=== PATIENT | female | born 1995 | race Caucasian/White ===

== ENCOUNTER 2016-11-26 02:05 | Inpatient (IN) | payer MEDICAID, OTHER ==
[2016-11-26] VITALS (50 sets, daily range): BP systolic 96–150; BP diastolic 47–117; PULSE 61–103; RESP 9–20; TEMP 97.7–98.3; O2SAT 96–100
[~2016-11-26] VITALS: Ht 160 cm; Wt 80.7 kg
[~2016-11-26 02:05] MED LIST: RANI150T PO
[2016-11-26] MEDS ORDERED: LACTATED RINGER'S 1000 ML INJ 1,000 ML IV SCH (02:54)
[2016-11-26] MEDS ORDERED: ONDANSETRON HCL 4 MG/2 ML VIAL IV PRN (03:00)
[2016-11-26] MEDS ORDERED: CITRIC ACID-SODIUM CITRATE LIQ 30 ML UDC PO SCH (03:00)
[2016-11-26] MEDS ORDERED: OXYTOCIN 30 UNITS-500ML PREMIX 500 ML IV ONE (03:00)
[2016-11-26] MEDS ORDERED: LIDOCAINE HCL 1% 50 ML VIAL INFIL PRN (03:00)
[2016-11-26] MEDS ORDERED: LIDOCAINE HCL 1% 50 ML VIAL I-DERMAL PRN (03:00)
[2016-11-26] MEDS ORDERED: SODIUM CHLORID 0.9% 500 ML INJ 500 ML IV PRN (03:00)
[2016-11-26] MEDS ORDERED: MINERAL OIL 10 ML VIAL TOPICAL PRN (03:00)
--- NOTE | 2016-11-26 03:07 | PD ---
HPI Chief Complaint contractions Date Seen: Nov 26, 2016 Travel History International Travel<30 Days: No Contact w/Intl Traveler<30Days: No Known Affected Area: No History of Present Illness HPI 21 yo @ 41w0d with DAVID 11-19-2016. care transferred to [facility]. GBS negative. Patient presents with c/o contractions since late last evening, now stronger. No LOF, VB. +FM. History Past Medical History Narrative Medical Tattoos x 4 Obstetric History Obstetric History x 2, no complications Past Surgical History Surgical History: No Previous Surgery Family History Family History: Negative Social History Alcohol Use: No Tobacco Use: No (quit) Substance Abuse: No Allergies-Medications (Allergen,Severity, Reaction): Coded Allergies: No Known Allergies (Verified , 11/24/16) Home Meds No Active Prescriptions or Reported Meds Review of Systems General / Constitutional: No: Fever, Chills Eyes: No: Blurred Vision, Visual changes HENT: No: Headaches, Lightheadedness Cardiovascular: No: Chest Pain or Discomfort, Palpitations Respiratory: No: Cough, Short of Breath Gastrointestinal: Nausea, Vomiting, Abdominal Pain (contractions) Genitourinary: No: Urgency, Frequency, Discharge, Vaginal Bleeding Musculoskeletal: No: Limited ROM, Weakness Skin: No Rash, No Itching Neurologic: No: Syncope, Focal Abnormalities Physical Exam Narrative GENERAL: Well-nourished, well-developed patient. SKIN: Warm and dry. HEAD: Normocephalic and atraumatic. EYES: No scleral icterus. No injection or drainage. ENT: No nasal drainage noted. Mucous membranes pink. Airway patent. NECK:trachea midline. No JVD. CARDIOVASCULAR: Regular rate RESPIRATORY:. No accessory muscle use. ABDOMEN/GI: Abdomen soft, non-tender, no rebound, no guarding Gravid GENITOURINARY: External Genitalia: intact and normal in appearance BUS glands: [-] SVE: 6/80/0 bulging membranes TOCO: UC q5 min FHT's: Category: I Baseline: 120 Reactive: +accelerations Variability: mod Decels: [-] EXTREMITIES: No cyanosis or edema. BACK: Nontender without obvious deformity. Normal ROM NEUROLOGICAL: Awake and alert. Motor and sensory grossly within normal limits. . Normal speech. Data Data Vital Signs Reviewed: Yes Orders Ob (2e) Additional Admit Info (11/26/16 02:37) Admit To Inpatient (11/26/16 ) Code Status (11/26/16 02:54) Vital Signs (Adult) .Per protocol (11/26/16 02:54) Activity Oob Ad Viry (11/26/16 02:54) ^ Heart (11/26/16 02:54) ^ Amnioinfusion (11/26/16 02:54) Urinary Catheter Management .ONCE (11/26/16 02:54) Diet Liquid (11/26/16 Breakfast) Lactated Ringer's 1000 Ml Inj (Lr 1000 M (11/26/16 02:54) Lactated Ringer's 1000 Ml Inj (Lr 1000 M (11/26/16 02:54) Sodium Chlorid 0.9% 500 Ml Inj (Ns 500 M (11/26/16 03:00) Sodium Chlor 0.9% 1000 Ml Inj (Ns 1000 M (11/26/16 03:14) Lidocaine 1% Inj (50 Ml) (Xylocaine 1% I (11/26/16 03:00) Citric Acid-Sodium Citrate Liq (Bicitra (11/26/16 03:00) Ondansetron Inj (Zofran Inj) (11/26/16 03:00) Fentanyl Inj (Fentanyl Inj) (11/26/16 03:00) Fentanyl Inj (Fentanyl Inj) (11/26/16 03:00) Complete Blood Count With Diff (11/26/16 02:54) Hold Clot (11/26/16 02:54) Abo/Rh Blood Type (11/26/16 02:54) Resp Oxygen Non Rebreathe Mask (11/26/16 ) ^ Epidural / Intrathecal Infus (11/26/16 02:54) Oxytocin 30 Units-500ml Premix (Pitocin (11/26/16 03:00) Lidocaine 1% Inj (50 Ml) (Xylocaine 1% I (11/26/16 03:00) Light Mineral Oil (Muri-Lube Oil) (11/26/16 03:00) Inpatient Certification (11/26/16 ) MDM Narrative Course / MDM 41 weeks Active labor GBS negative CAT I FHT Plan Admit AROM when appropriate Desires epidural Expectant management Scripts No Active Prescriptions or Reported Meds Wiedel,Kenya MD Nov 26, 2016 03:07
[2016-11-26] MEDS ORDERED: SODIUM CHLOR 0.9% 1000 ML INJ 1,000 ML IV PRN (03:14)
[2016-11-26 03:32] LABS: AUTOMATED NEUTROPHIL # 14.2 TH/MM3 (1.8-7.7); BASOPHIL # 0.1 TH/MM3 (0-0.2); BASOPHIL % 0.4 % (0.0-2.0); EOSINOPHIL % 0.3 % (0.0-4.0); HEMATOCRIT 35.1 % (35.0-46.0); HEMO FLAGS DIFF FINAL; LYMPH % 13.8 % (9.0-44.0); LYMPHOCYTE # 2.4 TH/MM3 (1.0-4.8); MEAN CELL VOLUME 86.1 FL (80.0-100.0); MEAN CORPUSCULAR HEMOGLOBIN 29.2 PG (27.0-34.0); MEAN CORPUSCULAR HGB CONC 33.9 % (32.0-36.0); MONO % 4.6 % (0.0-8.0); NEUT % 80.9 % (16.0-70.0); PLATELET COUNT 228 TH/MM3 (150-450); RED BLOOD COUNT 4.07 MIL/MM3 (4.00-5.30); RED CELL DISTRIBUTION WIDTH 13.9 % (11.6-17.2); WHITE BLOOD COUNT 17.5 TH/MM3 (4.0-11.0)
[2016-11-26] MEDS: LACTATED RINGER'S 1000 ML INJ 1,000 ML IV PRN (03:36)
[2016-11-26] MEDS ORDERED: fentaNYL 2MCG-BUPIV 0.125% INJ 100 ML ONE (03:41)
[2016-11-26] MEDS ORDERED: ePHEDrine/NS 50 MG/5 ML SYR IV PRN (05:00)
[2016-11-26] MEDS ORDERED: DO NOT ADMINISTER ANTICOAGULANTS XX PRN (05:00)
[2016-11-26] MEDS ORDERED: fentaNYL 2MCG-BUPIV 0.125% 100 ML EPIDURAL SCH (05:00)
[2016-11-26] MEDS ORDERED: NO SYSTEM NARCOTICS XX PRN (05:00)
--- NOTE | 2016-11-26 05:49 | HHI.HP ---
History & Physical H&P HPI Chief Complaint contractions Date Seen: Nov 26, 2016 Travel History International Travel<30 Days: No Contact w/Intl Traveler<30Days: No Known Affected Area: No History of Present Illness HPI 21 yo @ 41w0d with DAVID 11-19-2016. care transferred to [facility]. GBS negative. Patient presents with c/o contractions since late last evening, now stronger. No LOF, VB. +FM. History (Limited) History Past Medical History Narrative Medical Tattoos x 4 Obstetric History Obstetric History x 2, no complications Past Surgical History Surgical History: No Previous Surgery Family History Family History: Negative Social History Alcohol Use: No Tobacco Use: No (quit) Substance Abuse: No Allergies-Medications Allergies-Medications (Allergen,Severity, Reaction): Coded Allergies: No Known Allergies (Verified , 11/24/16) Home Meds No Active Prescriptions or Reported Meds ROS Review of Systems General / Constitutional: No: Fever, Chills Eyes: No: Blurred Vision, Visual changes HENT: No: Headaches, Lightheadedness Cardiovascular: No: Chest Pain or Discomfort, Palpitations Respiratory: No: Cough, Short of Breath Gastrointestinal: Nausea, Vomiting, Abdominal Pain (contractions) Genitourinary: No: Urgency, Frequency, Discharge, Vaginal Bleeding Musculoskeletal: No: Limited ROM, Weakness Skin: No Rash, No Itching Neurologic: No: Syncope, Focal Abnormalities Physical Exam Physical Exam Narrative GENERAL: Well-nourished, well-developed patient. SKIN: Warm and dry. HEAD: Normocephalic and atraumatic. EYES: No scleral icterus. No injection or drainage. ENT: No nasal drainage noted. Mucous membranes pink. Airway patent. NECK:trachea midline. No JVD. CARDIOVASCULAR: Regular rate RESPIRATORY:. No accessory muscle use. ABDOMEN/GI: Abdomen soft, non-tender, no rebound, no guarding Gravid GENITOURINARY: External Genitalia: intact and normal in appearance BUS glands: [-] SVE: 6/80/0 bulging membranes TOCO: UC q5 min FHT's: Category: I Baseline: 120 Reactive: +accelerations Variability: mod Decels: [-] EXTREMITIES: No cyanosis or edema. BACK: Nontender without obvious deformity. Normal ROM NEUROLOGICAL: Awake and alert. Motor and sensory grossly within normal limits. . Normal speech. Data Data Data Vital Signs Reviewed: Yes Orders Ob (2e) Additional Admit Info (11/26/16 02:37) Admit To Inpatient (11/26/16 ) Code Status (11/26/16 02:54) Vital Signs (Adult) .Per protocol (11/26/16 02:54) Activity Oob Ad Viry (11/26/16 02:54) ^ Heart (11/26/16 02:54) ^ Amnioinfusion (11/26/16 02:54) Urinary Catheter Management .ONCE (11/26/16 02:54) Diet Liquid (11/26/16 Breakfast) Lactated Ringer's 1000 Ml Inj (Lr 1000 M (11/26/16 02:54) Lactated Ringer's 1000 Ml Inj (Lr 1000 M (11/26/16 02:54) Sodium Chlorid 0.9% 500 Ml Inj (Ns 500 M (11/26/16 03:00) Sodium Chlor 0.9% 1000 Ml Inj (Ns 1000 M (11/26/16 03:14) Lidocaine 1% Inj (50 Ml) (Xylocaine 1% I (11/26/16 03:00) Citric Acid-Sodium Citrate Liq (Bicitra (11/26/16 03:00) Ondansetron Inj (Zofran Inj) (11/26/16 03:00) Fentanyl Inj (Fentanyl Inj) (11/26/16 03:00) Fentanyl Inj (Fentanyl Inj) (11/26/16 03:00) Complete Blood Count With Diff (11/26/16 02:54) Hold Clot (11/26/16 02:54) Abo/Rh Blood Type (11/26/16 02:54) Resp Oxygen Non Rebreathe Mask (11/26/16 ) ^ Epidural / Intrathecal Infus (11/26/16 02:54) Oxytocin 30 Units-500ml Premix (Pitocin (11/26/16 03:00) Lidocaine 1% Inj (50 Ml) (Xylocaine 1% I (11/26/16 03:00) Light Mineral Oil (Muri-Lube Oil) (11/26/16 03:00) Inpatient Certification (11/26/16 ) MDM MDM Narrative Course / MDM 41 weeks Active labor GBS negative CAT I FHT Plan Admit AROM when appropriate Desires epidural Expectant management Scripts No Active Prescriptions or Reported Meds Johana Unger MD Nov 26, 2016 03:07 Johana Unger MD Nov 26, 2016 05:49
--- NOTE | 2016-11-26 05:51 | PD.LABORPN ---
Subjective Subjective Comfortable now with JACK. returned. Objective Vital Signs Vital Signs Date Time Temp Pulse Resp B/P Pulse Ox O2 Delivery O2 Flow Rate FiO2 11/26/16 05:31 75 100/66 11/26/16 05:30 69 11/26/16 05:23 98.3 11/26/16 05:20 85 11/26/16 05:15 71 103/63 11/26/16 05:07 20 11/26/16 05:05 75 11/26/16 05:00 76 101/61 11/26/16 04:45 91 125/69 11/26/16 04:40 67 122/78 11/26/16 04:35 91 125/73 11/26/16 04:30 99 117/78 11/26/16 04:25 79 11/26/16 04:25 77 117/75 11/26/16 04:20 83 129/77 11/26/16 04:15 98 124/86 11/26/16 04:10 71 127/93 11/26/16 04:05 77 123/90 11/26/16 04:01 98 150/91 11/26/16 03:55 80 141/117 11/26/16 03:52 84 140/107 11/26/16 03:50 73 11/26/16 03:32 18 Objective Pelvic Exam: /0 AROM clear fluid FHT's: Category: I Baseline: 140 Reactive: + accelerations Variability: mod Decels: occasional early decelerations Assessment/Plan Assessment and Plan Expectant management FHT reassuring at this time Johana Unger MD Nov 26, 2016 05:51
[2016-11-26] MEDS ORDERED: ALUMINUM/MAGNESIUM/SIMETH 30 ML CUP PO PRN (06:30)
[2016-11-26] MEDS ORDERED: ACETAMINOPHEN 325 MG TAB PO PRN (06:30)
[2016-11-26] MEDS ORDERED: SODIUM CHLORIDE 0.9% FLUSH 5 ML FLUSH IV PRN (06:30)
[2016-11-26] MEDS ORDERED: BENZOCAINE 20% TOPICAL SPRAY 60 ML CAN TOPICAL PRN (06:30)
[2016-11-26] MEDS ORDERED: WITCH HAZEL 50%/GLYCERIN 12.5% 40 PAD JAR TOPICAL PRN (06:30)
[2016-11-26] MEDS ORDERED: ONDANSETRON ODT 4 MG TAB PO PRN (06:30)
[2016-11-26] MEDS ORDERED: ZOLPIDEM TARTRATE 5 MG TAB PO PRN (06:30)
[2016-11-26] MEDS ORDERED: SODIUM CHLORIDE 0.9% FLUSH 5 ML FLUSH IV SCH (09:00)
[2016-11-26] MEDS: DOCUSATE SODIUM 50 MG/SENNA 8.6 MG TAB PO PRN ×2 (12:59→20:42)
[2016-11-26] MEDS: IBUPROFEN 600 MG TAB PO PRN ×2 (12:59→20:42)
[2016-11-26] MEDS ORDERED: MEASLES, MUMPS, RUBELLA VACCINE 0.5 ML VIAL SQ ONE (16:00)
[2016-11-26] MEDS ORDERED: DIPHTH/TETANUS/ACEL PERTUSSIS (BOOSTER) 0.5 ML VIAL/PFS IM ONE (16:00)
[2016-11-27] MEDS: IBUPROFEN 600 MG TAB PO PRN ×3 (02:53→14:46)
[2016-11-27 08:00] VITALS: BP 112/77; PULSE 63; RESP 16; TEMP 97.8
--- NOTE | 2016-11-27 08:46 | HHI.OB ---
Subjective Post Day: 1 Remarks She is doing well this morning. She is ambulating and voiding without difficulty. Her vaginal bleeding has improved. She is breast-feeding. No chest pain, nausea, vomiting, shortness of breath, fever, chills. Objective Vitals/I&O Vital Signs Date Time Temp Pulse Resp B/P Pulse Ox O2 Delivery O2 Flow Rate FiO2 11/27/16 08:00 97.8 63 16 112/77 11/26/16 19:21 97.7 11/26/16 19:21 87 18 116/72 11/26/16 09:10 62 16 118/63 Objective Remarks GENERAL: Well-nourished, well-developed patient. CARDIOVASCULAR: Regular rate and rhythm without murmurs, gallops, or rubs. RESPIRATORY: Breath sounds equal bilaterally. No accessory muscle use. ABDOMEN/GI: Abdomen soft, non-tender. Fundus: Firm, non-tender at umbilicus. GENITOURINARY: Light to moderate bleeding. EXTREMITIES: No cyanosis or edema, non-tender, without signs of DVT. Medications and IVs Current Medications Medications (Trade) Dose Ordered Sig/Kaleigh Route Start Time Stop Time Status Last Admin (NS Flush) 2 ml BID IV 11/26/16 09:00 (NS Flush) 2 ml UNSCH PRN IV 11/26/16 06:30 (Tylenol) 650 mg Q4H PRN PO 11/26/16 06:30 (Motrin) 600 mg Q6H PRN PO 11/26/16 06:30 11/27/16 02:53 (Americaine 20% Top Spr) 1 spray Q4H PRN TOPICAL 11/26/16 06:30 (Tucks Pads) 1 applic QID PRN TOPICAL 11/26/16 06:30 (Mariela-Colace) 2 tab Q12H PRN PO 11/26/16 06:30 11/26/16 20:42 (Ambien) 5 mg HS PRN PO 11/26/16 06:30 (Mag-Al Plus Susp Liq) 15 ml Q8H PRN PO 11/26/16 06:30 (Zofran Odt) 4 mg Q6H PRN PO 11/26/16 06:30 Assessment/Plan Problem List: (1) Vaginal delivery Assessment and Plan 21 year old PPD1 1. Care - AFVSS since delivery - Motrin and Percocet prn pain - Encouraged OOB, as tolerated - Pelvic rest x 6 weeks - [facility] - Anticipate d/c tomorrow Discharge Planning Likely tomorrow Ad Hopkins MD R2 Nov 27, 2016 08:46
[2016-11-27] MEDS ORDERED: IBUP-232 PO (14:00)
[2016-11-27] MEDS ORDERED: SENN1TAB PO (14:00)
--- NOTE | 2016-11-27 14:01 | HHI.DCPOC ---
Discharge Care Plan Diagnosis: (1) Vaginal delivery Report Symptoms to Your Doctor -Temperate above 100.5 degrees -Redness, of incision or excessive or foul smelling drainage -Unusual pain or calf pain -Increased vaginal bleeding -Painful or difficulty urinating -Feelings of extreme sadness or anxiety after 2 weeks Goals to Promote Your Health * To prevent worsening of your condition and complications * To maintain your health at the optimal level Directions to Meet Your Goals Take your medications as prescribed Follow your dietary instruction Follow activity as directed Ensure plenty of rest for recovery Drink fluids for hydration Keep your appointments as scheduled Take your immunizations and boosters as scheduled If your symptoms worsen call your PCP, if no PCP go to Urgent Care Center or Emergency Room Smoking is Dangerous to Your Health. Avoid second hand smoke Call the 24-hour crisis hotline for domestic abuse at Ad Hopkins MD R2 Nov 27, 2016 14:00
== END 2016-11-27 16:18 | disposition home or self-care (01) | DRG 775 ==
LOC: HOBED 02:05 → H2EB 02:37 → H1EA 08:41
PROVIDERS: ADMIT Obstetrics & Gynecology; ATTEND Obstetrics & Gynecology
PROC: 10D07Z8 Extraction of Products of Conception, Other, Via Natural or Artificial Opening (ICD-10-PCS; principal; 2016-11-26)
PROC: 00HU33Z Insertion of Infusion Device into Spinal Canal, Percutaneous Approach (ICD-10-PCS; 2016-11-26)
PROC: 3E0R3CZ (ICD-10-PCS; 2016-11-26)
PROC: 10907ZC Drainage of Amniotic Fluid, Therapeutic from Products of Conception, Via Natural or Artificial Opening (ICD-10-PCS; 2016-11-26)
DX: O48.0 Post-term pregnancy (principal); Z37.0 Single live birth; Z3A.41 41 weeks gestation of pregnancy
CPT/HCPCS: 85025; 86900; 86901; 99285; J2405; J3010; J7120

== ENCOUNTER 2018-09-11 18:33 | Inpatient (IN) ==
[~2018-09-11 18:33] MED LIST changes: +Diphtheria/Tetanus/Pertussis Vaccine Inj 0.5 ML Syringe IM ONE; +Measles/Mumps/Rubella Vaccine Inj 0.5 ML Vial SQ ONE; -RANI150T PO
[2018-09-11 18:46] VITALS: RESP 18
[2018-09-11] MEDS ORDERED: fentaNYL Citrate Inj 100 MCG/2 ML Ampul IV.PUSH PRN ×2 (18:59)
[2018-09-11] MEDS ORDERED: Sod Chloride 0.9% Inj 1,000 ML IV.CONT PRN (18:59)
[2018-09-11] MEDS ORDERED: Oxytocin 30 Units/500ml Premix 30 UNITS/500 ML BAG IV.SIG ONE (18:59)
[2018-09-11] MEDS ORDERED: Penicillin G Potassium Inj 5,000,000 UNIT in Sodium Chloride 0.9% Inj 100 ML IV.SIG ONE (18:59)
[2018-09-11] MEDS ORDERED: Sodium Chlor 0.9% Inj 500 ML IV.SIG PRN (18:59)
[2018-09-11] MEDS ORDERED: Naloxone Inj 0.4 MG/ML Vial IV.PUSH PRN ×2 (18:59→22:26)
[2018-09-11] MEDS ORDERED: Citric Acid/Sodium Citrate Liq 30 ML UDC PO SCH (19:00)
[2018-09-11] MEDS ORDERED: Lidocaine 1% Inj 50 ML Vial ONE (19:07)
--- NOTE | 2018-09-11 19:08 | ED ---
History of Present Illness Primary Care Physician: [facility] Chief Complaint: I broke my water History of Present Illness: 23-year-old at 39 weeks and 6 days presents complaining of spontaneous rupture of membranes clear fluid GBS positive allergies none. Past OB history x3 without complication-pelvis tested to 8+ pound Past RESIDENTIAL SUPPORT SPECIALIST denies Past medical history denies Allergies denies Social history denies x3 Surgical history denies Weeks Gestation:: 39 Para: 3 : 4 - Inpatient Certification I certify that the inpatient services were ordered in accordance with Medicare regulations governing the order. This includes certification that hospital inpatient services are reasonable and necessary and in the case of services not specified as inpatient-only under 42 CFR 419.22(n), that they are appropriately provided as inpatient services in accordance to with the 2-midnight benchmark under 43 CFR 412.3(e) Estimated Total Length of Stay (Days): 2 Plans for Post Hospital Care: Home Review of Systems All other systems reviewed negative except as stated in HPI PMFSH - Travel History Recent Travel in the [place] Within the Last 8 Weeks: No Recent Travel Out of the Country Within the Last 8 Weeks: No Medications and Allergies Active Medications: Active Medications Citric Acid/Sodium Citrate (Sodium Citrate/Citric Acid Liq) 30 ml PO ASSISTANT SERVICE MANAGER HEMA Stop: 09/15/18 18:59 Fentanyl Citrate (Fentanyl Inj) 50 mcg IV.PUSH Q1H PRN PRN Reason: Pain Scale 3 - 5 Lactated Ringer's (Lr 1000 Ml Inj) 1,000 mls @ 3,000 mls/hr IV.SIG UNSCH PRN PRN Reason: compromise or epidural Lactated Ringer's (Lr 1000 Ml Inj) 1,000 mls @ 125 mls/hr IV.CONT .Q8H HEMA Sodium Chloride (Ns Inj) 1,000 mls @ 100 mls/hr IV.CONT .Q10H PRN PRN Reason: SEE LABEL COMMENTS Oxytocin (Pitocin 30 Units/Ns 500 Ml Premix) 30 units in 500 mls @ 999 mls/hr IV.SIG BOLUS ONE Stop: 09/11/18 19:29 Penicillin G Potassium 5,000, (000 unit/ Sodium Chloride) 100 mls @ 200 mls/hr IV.SIG ONCE ONE Stop: 09/11/18 19:28 Lidocaine HCl (Xylocaine 1% Inj) 0.1 ml I-DERMAL PRN PRN PRN Reason: For IV start Stop: 09/14/18 18:58 Lidocaine HCl (Xylocaine 1% Inj) 10 ml INFILTRATN PRN PRN PRN Reason: For episiotomy repair Stop: 09/13/18 18:58 Mineral Oil (Muri-Lube Oil) 10 ml TOPICAL PRN PRN PRN Reason: PRN perineal massage Naloxone HCl (Narcan Inj) 0.1 mg IV.PUSH Q2M PRN PRN Reason: for opiate reversal Allergies Allergy/AdvReac Type Severity Reaction Status Date / Time No Known Allergies Allergy Verified 09/11/18 18:59 Exam Vital signs: Vital Signs 09/11/18 18:44 Temperature 98.3 F Pulse Rate 94 H Respiratory Rate 18 Blood Pressure 135/76 Intake & Output 09/11/18 09/11/18 09/12/18 06:59 18:59 06:59 Weight 79.832 kg Narrative: GENERAL: Well-nourished, well-developed patient. SKIN: Warm and dry. HEAD: Normocephalic and atraumatic. EYES: No scleral icterus. No injection or drainage. ENT: No nasal drainage noted. Mucous membranes pink. Airway patent. NECK: Supple, trachea midline. No JVD. CARDIOVASCULAR: Regular rate and rhythm without murmurs, gallops, or rubs. RESPIRATORY: Breath sounds equal bilaterally. No accessory muscle use. BREASTS: Bilateral exam showed no masses , no retractions, no nipple discharge. ABDOMEN/GI: Abdomen soft, non-tender, bowel sounds present, no rebound, no guarding Gravid to 39 weeks size Fundal Height: 39 GENITOURINARY: External Genitalia: intact and normal in appearance BUS glands: un remarkable Cervix: Soft Dilatation: 5-6 Effacement: 90 Station: -1 Presentation: Vertex Membranes: Ruptured Uterine Contractions: Present FHT's: Category: 1 EXTREMITIES: No cyanosis or edema. BACK: Nontender without obvious deformity. No CVA tenderness. NEUROLOGICAL: Awake and alert. Motor and sensory grossly within normal limits. Normal speech. Assessment and Plan - Diagnosis (1) SROM (spontaneous rupture of membranes) Status: Acute (2) Positive GBS test Code(s): B95.1 - Streptococcus, group B, as the cause of diseases classified elsewhere Status: Acute (3) 39 weeks gestation of Code(s): Z3A.39 - 39 weeks gestation of Status: Acute - Plan Admit pelvis adequate anticipate /GBS prophylaxis Discharge Plan - Discharge Disposition Patient Disposition: 30 Still Patient - Physicians Team ED Provider: Nicole Shepherd Primary Care Provider: NOT REQUIRED,
[2018-09-11 19:14] LABS: Baso # (Auto) 0.2 th/mm3 (0.0-0.2); Baso % (Auto) 1.2 % (0.0-2.0); Eos % (Auto) 0.1 % (0.0-4.0); Hematocrit 33.4 % (35.0-46.0); Hemoglobin 11.1 gm/dL (11.6-15.3); Lymph % (Auto) 23.2 % (9.0-44.0); Mean Corpuscular HGB Conc 33.1 % (32.0-36.0); Mean Corpuscular Hemoglobin 28.5 pg (27.0-34.0); Mean Corpuscular Volume 86.1 fL (80.0-100.0); Mean Platelet Volume 9.9 fL (7.0-11.0); Mono % (Auto) 5.6 % (0.0-8.0); Neut # (Auto) 12.2 th/mm3 (1.8-7.7); Neut % (Auto) 69.9 % (16.0-70.0); Platelet Count 297 th/mm3 (150-450); Red Blood Count 3.88 mil/mm3 (4.00-5.30); Red Cell Distribution Width 15.5 % (11.6-17.2); White Blood Count 17.4 th/mm3 (4.0-11.0)
[2018-09-11] MEDS ORDERED: fentaNYL 2MCG-Bupiv 0.125% Epi 150 ML EPIDURAL ONE (19:29)
[2018-09-11] MEDS ORDERED: Lidocaaine 1.5%/Epinephrine 1:200,000 PF Inj 5 ML Amp ONE (19:36)
[2018-09-11] MEDS ORDERED: Lidocaine PF 1% Inj 5 ML Vial ONE (19:36)
[2018-09-11 20:03] LABS: Amphetamine Urine With Conf Neg (Neg); Benzodiazepine Urine With Conf Neg (Neg); Cocaine Urine With Conf Neg (Neg); Opiates Urine With Conf Neg (Neg)
[2018-09-11 20:05] LABS: Bilirubin,Urine Negative (Negative); Clarity,Urine Hazy (Clear); Color,Urine Yellow (Yellw/Straw); Glucose,Urine (UA) Negative (Negative); Leukocyte Esterase,Urine Negative (Negative); Mucus,Urine Few /lpf (Occasional); Nitrite,Urine Negative (Negative); Specific Gravity,Urine 1.017 (1.002-1.035); Squamous Epithelial Cell,Urine 1 /hpf (0-5)
[2018-09-11 20:06] LABS: Cannabinoid Urine With Conf Pos (Neg)
[2018-09-11] MEDS ORDERED: fentaNYL Citrate Inj 100 MCG/2 ML Ampul EPIDURAL ONE (20:08)
[2018-09-11] MEDS ORDERED: fentaNYL 2MCG-Bupiv 0.125% Epi 150 ML EPIDURAL PRN (20:08)
[2018-09-11] MEDS ORDERED: Oxytocin 30 Units/500ml Premix 30 UNITS/500 ML BAG IV.SIG PRN (21:39)
[2018-09-11] MEDS ORDERED: Sodium Chloride 0.9% 2 ML Flush PRN IV.FLUSH (22:23)
[2018-09-11] MEDS ORDERED: Oxytocin 30 Units/500ml Premix 30 UNITS/500 ML BAG IV.CONT PRN (22:26)
[2018-09-11] MEDS ORDERED: Bisacodyl 10 MG Supp RECTAL PRN (22:26)
[2018-09-11] MEDS ORDERED: Witch Hazel 50%/Glyderin 12.5% 40 Pad Jar RECTAL PRN (22:26)
[2018-09-11] MEDS ORDERED: Benzocaine 20% Top Spray 60 ML Can TOPICAL PRN (22:26)
[2018-09-11] MEDS ORDERED: Zolpidem Tartrate 5 MG Tablet PO PRN (22:26)
[2018-09-11] MEDS ORDERED: Acetaminophen 325 MG Tablet PO PRN (22:26)
--- NOTE | 2018-09-11 22:30 | P.OBDELI ---
Weeks Gestation: 39 Artificial Rupture of Membrane: No Anesthesia: None, Epidural Episiotomy: none Vaginal Delivery: Normal, Spontaneous Presentation: Occiput anterior, Vertex Nuchal Cord: None Delayed Cord Clamping (45 sec): Yes Placenta: Spontaneous delivery, Intact, 3 vessel cord Laceration: Vaginal (shallow periurethral lacteration, figure of 8 stitch placed with hemostasis) Repair: Chromic running Estimated blood loss (mL): 50 : Male Male A Delivery Date: 09/11/18 Delivery Time: 22:06 Weight: 3.755 kg score (1 min): 8 score (5 min): 8
[2018-09-11] MEDS ORDERED: Penicillin G Potassium Inj 2,500,000 UNIT in Sodium Chlor 0.9% Inj 100 ML IV.SIG SCH (23:01)
--- NOTE | 2018-09-12 08:18 | P.PNOB ---
Subjective Interval history: 23 year old female s/p at 39 wks gestation, PPD1. AFVSS. Patient reports she is feeling well. Bleeding is decreasing and pain is well- controlled. She is breast feeding and bonding well with baby. Ambulating without difficulties. She is tolerating a diet without nausea or vomiting. She has not had a bowel movement. She has not passed gas. Denies chest pain, dysuria , shortness of breath, or calf pain. Objective Vital Signs/I&O: Vital Signs 09/11/18 18:44 09/11/18 18:55 09/11/18 19:15 Temperature 98.3 F Pulse Rate 94 H 95 H 87 Respiratory Rate 18 Blood Pressure 135/76 09/11/18 19:32 09/11/18 19:35 09/11/18 19:36 Temperature Pulse Rate 87 94 H 96 H Respiratory Rate Blood Pressure 140/82 143/97 H 09/11/18 19:40 09/11/18 19:45 09/11/18 19:51 Temperature Pulse Rate 92 H 89 72 Respiratory Rate Blood Pressure 129/102 H 140/70 09/11/18 19:55 09/11/18 20:00 09/11/18 20:01 Temperature Pulse Rate 99 H 80 86 Respiratory Rate Blood Pressure 127/85 128/78 09/11/18 20:05 09/11/18 20:10 09/11/18 20:15 Temperature Pulse Rate 82 84 86 Respiratory Rate Blood Pressure 134/72 09/11/18 20:20 09/11/18 20:30 09/11/18 20:40 Temperature Pulse Rate 99 H 133 H 79 Respiratory Rate Blood Pressure 108/66 09/11/18 20:45 09/11/18 20:50 09/11/18 20:55 Temperature Pulse Rate 95 H 116 H 91 H Respiratory Rate Blood Pressure 121/92 H 09/11/18 21:00 09/11/18 21:05 09/11/18 21:10 Temperature Pulse Rate 109 H 110 H 128 H Respiratory Rate Blood Pressure 09/11/18 21:15 09/11/18 21:25 09/11/18 21:30 Temperature Pulse Rate 119 H 117 H 111 H Respiratory Rate Blood Pressure 126/85 09/11/18 21:31 09/11/18 21:40 09/11/18 21:45 Temperature Pulse Rate 114 H 119 H 114 H Respiratory Rate Blood Pressure 117/75 09/11/18 21:46 09/11/18 21:50 09/11/18 22:00 Temperature Pulse Rate 106 H 117 H 117 H Respiratory Rate Blood Pressure 114/77 134/99 H 09/11/18 22:05 09/11/18 22:30 09/11/18 22:31 Temperature 97.7 F Pulse Rate 134 H 93 H 87 Respiratory Rate 18 Blood Pressure 128/59 L 113/68 09/11/18 22:57 09/11/18 23:15 09/11/18 23:16 Temperature Pulse Rate 88 115 H 80 Respiratory Rate 18 18 Blood Pressure 132/84 113/94 H 117/75 09/11/18 23:30 09/11/18 23:45 09/12/18 00:20 Temperature 98.0 F Pulse Rate Respiratory Rate 18 18 Blood Pressure 09/12/18 00:25 09/12/18 04:36 Temperature 98.0 F Pulse Rate 76 Respiratory Rate 18 18 Blood Pressure 128/65 Intake & Output 09/11/18 09/12/18 09/12/18 18:59 06:59 18:59 Intake Total 1100 / 1100 Balance 1100 / 1100 Weight 79.832 kg Intake: IV 1100 / 1100 LR 1000 mL Inj 1,000 ML @ 3000 1000 / 1000 mls/hr IV.SIG UNSCH PRN Rx#: [id number] Pfizerpen-G Inj 5,000,000 UNIT 100 / 100 In NS Inj 100 ML @ 200 mls/hr IV.SIG ONCE ONE Rx#:[id number] Result Diagrams: 09/11/18 07:05 Objective Remarks: GENERAL: Well-nourished, well-developed patient. CARDIOVASCULAR: Regular rate and rhythm without murmurs, gallops, or rubs. RESPIRATORY: Breath sounds equal bilaterally. No accessory muscle use. ABDOMEN/GI: Abdomen soft, non-tender. Fundus: Firm, non-tender at umbilicus. GENITOURINARY: Light to moderate bleeding. EXTREMITIES: No cyanosis or edema, non-tender, without signs of DVT. Medications and IVs: Active Medications Acetaminophen (Tylenol) 650 mg PO Q4H PRN PRN Reason: PAIN SCALE 1 TO 2 Al Hydroxide/Mg Hydroxide (Milk Of Magnesia Liq) 30 ml PO Q12H PRN PRN Reason: Mild Constipation Benzocaine (Americaine 20% Top [place]) 1 spray TOPICAL Q4H PRN PRN Reason: For Perineum Discomfort Last Admin: 09/12/18 00:59 Dose: 1 spray Bisacodyl (Dulcolax Supp) 10 mg RECTAL DAILY PRN PRN Reason: SEVERE CONSITIPATION Diphtheria/Pertussis/Tetanus Vacc (Boostrix Vaccine Inj) 0.5 ml IM .ONCE ONE Stop: 09/12/18 16:01 Ephedrine Sulfate (Ephedrine/Ns Syringe) 10 mg IV.PUSH UNSCH PRN PRN Reason: SEE LABEL COMMENTS Stop: 09/12/18 20:08 Fentanyl/Bupivacaine/Sodium Chlor (Fentanyl 2 Mcg-Bupiv 0.125% Epi) 150 mls @ 12 mls/hr EPIDURAL PRN PRN PRN Reason: for Labor Pain Last Admin: 09/11/18 19:51 Dose: 12 mls/hr Oxytocin (Pitocin 30 Units/Ns 500 Ml Premix) 30 units in 500 mls @ 2 mls/hr IV.SIG TITRATE PRN; Protocol PRN Reason: For induction of labor Last Admin: 09/11/18 21:40 Dose: 2 milliunit/min, 2 mls/hr Oxytocin (Pitocin 30 Units/Ns 500 Ml Premix) 30 units in 500 mls @ 100 mls/hr IV.CONT UNSCH PRN PRN Reason: Heavy bleeding Ibuprofen (Motrin) 800 mg PO Q8H PRN PRN Reason: For Cramping Last Admin: 09/12/18 01:45 Dose: 800 mg Lactulose (Lactulose Liq) 30 ml PO DAILY PRN PRN Reason: SEVERE CONSITIPATION Measles/Mumps/Rubella Vaccine Live (M-M-R Ii Vaccine Inj) 0.5 ml SQ .ONCE ONE Stop: 09/12/18 16:01 Miscellaneous Information (Misc Information) 1 each OTHER UNSCH PRN PRN Reason: SEE LABEL COMMENTS Stop: 09/12/18 20:08 Miscellaneous Information (Misc Information) 1 each OTHER UNSCH PRN PRN Reason: SEE LABEL COMMENTS Stop: 09/12/18 20:08 Naloxone HCl (Narcan Inj) 0.1 mg IV.PUSH Q2M PRN PRN Reason: for opiate reversal Ondansetron HCl (Zofran Odt) 4 mg PO Q6H PRN PRN Reason: NAUSEA OR VOMITING Senna/Docusate Sodium (Mariela-Colace) 1 tab PO BID HEMA Sennosides (Senokot) 17.2 mg PO Q12H PRN PRN Reason: Moderate Constipation Sodium Chloride (Ns Flush) 2 ml IV.FLUSH BID HEMA Sodium Chloride (Ns Flush) 2 ml IV.FLUSH PRN PRN PRN Reason: FLUSH AFTER USING IV ACCESS Sodium Chloride (Ns Flush) 2 ml IV.FLUSH BID HEMA Sodium Chloride (Ns Flush) 2 ml IV.FLUSH PRN PRN PRN Reason: FLUSH AFTER USING IV ACCESS Witch Yahaira/Glycerin (Tucks Pads) 1 applicatio RECTAL QID PRN PRN Reason: HEMORRHOIDS Last Admin: 09/12/18 00:59 Dose: 1 applicatio Zolpidem Tartrate (Ambien) 5 mg PO HS PRN PRN Reason: SLEEP Assessment and Plan - Diagnosis (1) Normal vaginal delivery Code(s): O80 - Encounter for full-term uncomplicated delivery Status: Acute (2) Positive GBS test Code(s): B95.1 - Streptococcus, group B, as the cause of diseases classified elsewhere Status: Acute - Plan 23 yo female s/p , PPD 1 - AFVSS - Continue routine care - Motrin PRN pain - Encourage OOB - Pelvic rest x 6 wks. - Contraception: Tubal ligation, will discuss with OB provider - Anticipate D/C tomorrow jean paul Shepherd
[2018-09-12] MEDS: Senna/Docusate Sodium 8.6/50 MG Tablet PO SCH ×2 (08:55→20:14)
[2018-09-12] MEDS ORDERED: Sodium Chloride 0.9% 2 ML Flush BID IV.FLUSH SCH (09:00)
[2018-09-12] MEDS ORDERED: Diphtheria/Tetanus/Pertussis Vaccine Inj 0.5 ML Syringe IM ONE (16:00)
[2018-09-12] MEDS ORDERED: Measles/Mumps/Rubella Vaccine Inj 0.5 ML Vial SQ ONE (16:00)
[2018-09-13 08:39] VITALS: BP 127/83; PULSE 59
[2018-09-13 08:40] VITALS: TEMP 97.9
--- NOTE | 2018-09-13 08:43 | P.PNOB ---
Subjective Post day: 2 Interval history: Pt doing well. Has no complaints. Ambulating ok. Minimal lochia. Would like to discuss tubal ligation with his OB provider. No CP, no SOB, no calf tenderness. Objective Vital Signs/I&O: Vital Signs 09/12/18 20:00 09/13/18 08:00 Temperature 98.2 F 97.9 F Pulse Rate 60 59 L Respiratory Rate 18 18 Blood Pressure 110/73 127/83 Result Diagrams: 09/11/18 07:05 Objective Remarks: GENERAL: Well-nourished, well-developed patient. . CARDIOVASCULAR: Regular rate and rhythm without murmurs, gallops, or rubs. RESPIRATORY: Breath sounds equal bilaterally. No accessory muscle use. ABDOMEN/GI: Abdomen soft, non-tender. Fundus: Firm, non-tender at umbilicus. EXTREMITIES: No cyanosis or edema, non-tender, without signs of DVT. Medications and IVs: Active Medications Acetaminophen (Tylenol) 650 mg PO Q4H PRN PRN Reason: PAIN SCALE 1 TO 2 Al Hydroxide/Mg Hydroxide (Milk Of Magnesia Liq) 30 ml PO Q12H PRN PRN Reason: Mild Constipation Benzocaine (Americaine 20% [place]) 1 spray TOPICAL Q4H PRN PRN Reason: For Perineum Discomfort Last Admin: 09/12/18 00:59 Dose: 1 spray Bisacodyl (Dulcolax Supp) 10 mg RECTAL DAILY PRN PRN Reason: SEVERE CONSITIPATION Fentanyl/Bupivacaine/Sodium Chlor (Fentanyl 2 Mcg-Bupiv 0.125% Epi) 150 mls @ 12 mls/hr EPIDURAL PRN PRN PRN Reason: for Labor Pain Last Admin: 09/11/18 19:51 Dose: 12 mls/hr Oxytocin (Pitocin 30 Units/Ns 500 Ml Premix) 30 units in 500 mls @ 2 mls/hr IV.SIG TITRATE PRN; Protocol PRN Reason: For induction of labor Last Admin: 09/11/18 21:40 Dose: 2 milliunit/min, 2 mls/hr Oxytocin (Pitocin 30 Units/Ns 500 Ml Premix) 30 units in 500 mls @ 100 mls/hr IV.CONT UNSCH PRN PRN Reason: Heavy bleeding Ibuprofen (Motrin) 800 mg PO Q8H PRN PRN Reason: For Cramping Last Admin: 09/12/18 20:14 Dose: 800 mg Lactulose (Lactulose Liq) 30 ml PO DAILY PRN PRN Reason: SEVERE CONSITIPATION Naloxone HCl (Narcan Inj) 0.1 mg IV.PUSH Q2M PRN PRN Reason: for opiate reversal Ondansetron HCl (Zofran Odt) 4 mg PO Q6H PRN PRN Reason: NAUSEA OR VOMITING Last Admin: 09/13/18 05:02 Dose: 4 mg Senna/Docusate Sodium (Mariela-Colace) 1 tab PO BID [facility] Last Admin: 09/12/18 20:14 Dose: 1 tab Sennosides (Senokot) 17.2 mg PO Q12H PRN PRN Reason: Moderate Constipation Sodium Chloride (Ns Flush) 2 ml IV.FLUSH BID [facility] Last Admin: 09/12/18 20:10 Dose: Not Given Sodium Chloride (Ns Flush) 2 ml IV.FLUSH PRN PRN PRN Reason: FLUSH AFTER USING IV ACCESS Sodium Chloride (Ns Flush) 2 ml IV.FLUSH BID [facility] Last Admin: 09/12/18 20:10 Dose: Not Given Sodium Chloride (Ns Flush) 2 ml IV.FLUSH PRN PRN PRN Reason: FLUSH AFTER USING IV ACCESS Witch Yahaira/Glycerin (Tucks Pads) 1 applicatio RECTAL QID PRN PRN Reason: HEMORRHOIDS Last Admin: 09/12/18 00:59 Dose: 1 applicatio Zolpidem Tartrate (Ambien) 5 mg PO HS PRN PRN Reason: SLEEP Assessment and Plan - Diagnosis (1) Normal vaginal delivery Code(s): O80 - Encounter for full-term uncomplicated delivery Status: Acute (2) Positive GBS test Code(s): B95.1 - Streptococcus, group B, as the cause of diseases classified elsewhere Status: Acute - Plan 23 yo female s/p , PPD 2 - AFVSS - Continue routine care - Motrin PRN pain - Encourage OOB - Pelvic rest x 6 wks. - Contraception: Tubal ligation, will discuss with OB provider - [place] home today. jean paul Biswas and Dr. Coto
[2018-09-13] MEDS: Senna/Docusate Sodium 8.6/50 MG Tablet PO SCH (08:53)
== END 2018-09-13 18:05 | disposition home or self-care (01) ==
LOC: HOBED 18:33 → H2E 18:57 → H1EA 09-12 00:25
PROVIDERS: ADMIT Obstetrics & Gynecology; ATTEND Obstetrics & Gynecology